=== PATIENT | female | born 1985 | race Caucasian/White ===

== ENCOUNTER 2020-11-21 14:11 | Outpatient (CLI) | payer BC, SELFPAY | END 2020-11-21 14:12 | disposition home or self-care (01) | LOC: ANHCOVIDVC 14:11 | DX: Z23 Encounter for immunization (principal) | CPT/HCPCS: 0001A; 91300 ==

== ENCOUNTER 2020-12-12 14:09 | Outpatient (CLI) | payer BC, SELFPAY | END 2020-12-12 14:10 | disposition home or self-care (01) | LOC: ANHCOVIDVC 14:09 | DX: Z23 Encounter for immunization (principal) | CPT/HCPCS: 0002A; 91300 ==

== ENCOUNTER 2024-03-30 10:19 | Outpatient (CLI) | payer BC, SELFPAY ==
--- NOTE | ~2024-03-30 | MM_ITS ---
EXAMINATION: MM screening cadence BI w rosi HISTORY: Screening TECHNIQUE: Craniocaudal and mediolateral oblique 3-D tomosynthesis images were obtained and synthetic 2-D images were generated. CAD analysis was submitted and interpreted. COMPARISON: No prior mammogram is available for comparison at this institution. BREAST PARENCHYMAL COMPOSITION: Not dense: There are scattered areas of fibroglandular density. FINDINGS: There is no evidence of suspicious mass, calcification, or architectural distortion to sugg est malignancy in either breast. There has been no suspicious interval change. IMPRESSION: 1. No mammographic evidence of malignancy. 2. Recommend routine screening mammography in one year. BI-RADS Category 1: Negative Reviewed, dictated and finalized at location B.
== END 2024-03-30 10:20 ==
PROVIDERS: PCP Physician Assistant; Visit Provider Nurse Practitioner
DX: Z12.31 Encounter for screening mammogram for malignant neoplasm of breast (principal)
CPT/HCPCS: 77063; 77067

== ENCOUNTER 2025-04-07 07:19 | Outpatient (CLI) | payer BC, SELFPAY ==
--- NOTE | ~2025-04-07 | MM_ITS ---
EXAMINATION: MM screening cadence BI w rosi HISTORY: Screening TECHNIQUE: Craniocaudal and mediolateral oblique 3-D tomosynthesis images were obtained and synthetic 2-D images were generated. CAD analysis was submitted and interpreted. COMPARISON: 03/30/2024 BREAST PARENCHYMAL COMPOSITION: Not dense: There are scattered areas of fibroglandular density. FINDINGS: There is no evidence of suspicious mass, calcification, or architectural distortion to sugg est malignancy in either breast. There has been no suspicious interval change. IMPRESSION: 1. No mammographic evidence of malignancy. 2. Recommend routine screening mammography in one year. BI-RADS Category 1: Negative Reviewed, dictated and finalized at location A.
== END 2025-04-07 07:20 | disposition home or self-care (01) ==
LOC: MICIMG 07:20
PROVIDERS: PCP Physician Assistant; Visit Provider Obstetrics & Gynecology Gynecology
DX: Z12.31 Encounter for screening mammogram for malignant neoplasm of breast (principal)
CPT/HCPCS: 77063; 77067